=== PATIENT | female | born 1970 | race Caucasian/White ===

== ENCOUNTER 2025-03-05 17:18 | Emergency (ER) | payer OTHER, SELFPAY ==
--- NOTE | ~2025-03-05 | XR_ITS ---
EXAM: XR forearm RT 2V DATE: 03/05/2025 19:40 HISTORY: dog bite . COMPARISON: None available. FINDINGS: Normal mineralization. Slight cortical irregularity and possible linear lucency in the rad ial head. Right elbow joint effusion. No lytic or blastic lesion. Joint spaces and physes are maintai nilay. No erosion or periosteal change. Bandage material over the proximal forearm. Subcutaneous lucenc ies in the region of the bandage material. IMPRESSION: Possible radial head fracture with right elbow joint effusion. Recommend dedicated right elbow radiographs for further evaluation. Subcutaneous gas in the proximal forearm versus gas trapped within bandage material. Reviewed, dictated and finalized at location K. IMPRESSION: Possible radial head fracture with right elbow joint effusion. Mahin mmend dedicated right elbow radiographs for further evaluation. Subcutaneous ga s in the proximal forearm versus gas trapped within bandage material.
--- NOTE | ~2025-03-05 | XR_ITS ---
EXAM: XR elbow RT min 3V DATE: 03/05/2025 20:21 HISTORY: dog bite . COMPARISON: None available. FINDINGS: Normal mineralization. No fracture or dislocation. No lytic or blastic lesion. Joint space s are maintained. No erosion or periosteal change. Soft tissues within normal limits. Small right elb ow joint effusion. IMPRESSION: No acute osseous finding the right elbow. Small right elbow joint effusion. Reviewed, dictated and finalized at location K. IMPRESSION: No acute osseous finding the right elbow. Small right elbow joint e ffusion.
[2025-03-05 17:22] VITALS: BP 124/59; PULSE 89; RESP 16; TEMP 36.4; O2SAT 100
--- OUTSIDE RECORDS SUMMARY | 2025-03-05 18:44 | XMS_ITS | Clinical Summary ---
Author Organization [facility] Address [address] [place] [address] Care Team Providers Care Terrazzo Polisher Helper Name Role Phone Aries Landin DO Primary Care Provider [phone] Allergies No known active allergies Medications buPROPion HCL (WELLBUTRIN XL) 300 mg Extended Release 24 hour tabletIndications :Anxiety and depression TAKE ONE TABLET BY MOUTH ONCE DAILY IN THE MORNING (PLEASE MAKE AN APPOINTMENT) 90 Tablet 021 Active finasteride (PROSCAR) 5 mg tablet Take 5 mg by mouth daily. 023 Active traZODone (DESYREL) 100 mg tablet Take 100 mg by mouth daily after supper. 024 Active OLANZapine (ZyPREXA) 5 mg tablet Take 1 Tablet (5 mg) by mouth daily at bedtime. 30 Tablet 1 09/14/19 25 11:24 AM EXTERIOR DOOR INSTALLER 025 Active EnbreL SureClick 50 mg/mL (1 mL) Pen Injector Inject 4 mL by subcutaneous injection every 7 days. 025 Active levothyroxine 137 mcg tabletIndications :Acquired hypothyroidism Take 1 Tablet (137 mcg) by mouth daily in the morning. 100 Tablet 3 025 Active divalproex (DEPAKOTE) 250 mg Delayed Release tablet 025 Active sertraline (ZOLOFT) 100 mg tablet Active metFORMIN (GLUCOPHAGE XR) 500 mg Extended Release 24 hour tabletIndications :Type 2 diabetes mellitus without complication, without long-term current use of insulin (CMS/HCC) take 1 tablet by mouth twice daily with meals 200 Tablet 3 025 Active mirabegron (MYRBETRIQ) 25 mg Extended Release 24 hour tablet TAKE 1 TABLET DAILY 90 Tablet 025 Active progesterone micronized (PROMETRIUM) 100 mg Capsule Take 1 Capsule (100 mg) by mouth daily. 90 Capsule 025 Active Estradiol 0.5 mg/0.5 gram (0.1 %) Gel in Packet Apply 1 Package (0.5 mg) to skin as directed daily. 90 Packet 025 Active mirabegron (MYRBETRIQ) 25 mg Extended Release 24 hour tablet TAKE 1 TABLET DAILY 90 Tablet 025 2024 Discontinued progesterone micronized (PROMETRIUM) 100 mg Capsule TAKE 1 CAPSULE DAILY 90 Capsule 025 2024 Discontinued Estradiol 0.5 mg/0.5 gram (0.1 %) Gel in Packet APPLY 1 PACKET TO SKIN DIRECTED DAILY 90 Packet 025 2024 Discontinued(R eorder) Active Problems Patient Care Coordination No te Formatting of this note migh t be different from the original. 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 on humira. tolerated med and afforing relief. following Dr. Magi Main, arthitis customer service and sales consultant. Routine physical examination 01/11/2019 Bipolar affective disorder, currently depressed, moderate 01/11/2019 Current moderate episode of major depressive disorder without prior episode 02/06/2018 Other dietary vitamin B12 deficiency anemia 03/2018 Acquired hypothyroidism 02/05/2018 Onychomycosis 03/05/2017 Insomnia 05/10/2015 Former smoker 01/10/2015 Resolved Problems Problem Noted Date Diagnosed Date Resolved Date Chronic obstructive pulmonary disease 04/30/2022 11/11/2024 Type 2 diabetes mellitus with hyperglycemia 02/05/2018 04/30/2022 Encounters Date Type Department Care Team Description 02/22/2025 External Device Data [facility] ABSTRACTION Provider, Abstract 02/22/2025 External Device Data [facility] ABSTRACTION Provider, Abstract 02/16/2025 External Device Data [facility] ABSTRACTION Provider, Abstract 02/16/[address] [address] Magi Graham 02/15/2025 External Device Data [facility] ABSTRACTION Provider, Abstract 02/15/[address] [address] Galdino Connelly MD 02/10/[address] [address] Galdino Connelly MD 01/20/2025 External Device Data [facility] ABSTRACTION Provider, Abstract 01/20/2025 External Device Data [facility] ABSTRACTION Provider, Abstract 01/11/2025 External Device Data [facility] ABSTRACTION Provider, Abstract 12/07/2024 External Device Data [facility] ABSTRACTION Provider, Abstract 12/07/2024 External Device Data [facility] ABSTRACTION Provider, Abstract from Last 3 Months Immunizations Immunization Administration Dates Next Due (ADACEL/BOOSTRIX)(10 YR UP) TDAP VACCINE, 0.5ML, IM 02/26/2021 (PFIZER)(12 YR UP) COVID-19 VACCINE - EMERGENCY USE AUTHORIZATION, MRNA, [id number](PF) 30 MCG/0.3 ML IM SUSP 08/06/2021,12/14/2020,11/24/2020 (PNEUMOVAX 23)(50 YRS UP) PN EUMOCOCCAL POLYSACCHARIDE (PPV23) 0.5 ML, IM 05/12/2018 Adacel Vaccine > 7 Yo IM 02/26/2021 INFLUENZA VACCINE QUADRIVALE NT 6 MOS UP IM 05/12/2018 INFLUENZA VACCINE QUADRIVALE NT 6 MOS UP PF IM 05/21/2023,06/04/2021,07/13/2020,05/20 INFLUENZA VACCINE TRIVALENT SPLIT VIRUS, (6 MOS UP), 0.5ML (PF), IM 06/11/2024 Influenza Seasonal Unspecifi ed Formulation IM 05/21/2023,06/04/2021,07/13/2020,05/20 Influenza Vaccine Split 6-35 Mo IM 06/08/2011 Influenza Vaccine Tri Split 4+ Pf Im 08/03/2012, 06/08/2011 Family History Medical History Relation Name Comments Alcohol abuse Father Abdoulaye Hypertension Father Abdoulaye Hypertension Mother Benita Stroke Mother Benita Relation Name Status Comments Father Abdoulaye Mother Benita Social History Tobacco Use Types Packs/Day Years Used Date Smoking Tobacco: Former Cigarettes 0.5 20 0 05/14/1997 - 05/14/2017 Smokeless Tobacco: Never Tobacco Cessation:Counseling Given: No Alcohol Use Standard Drinks/Week Comments Yes 8 (1 standard drink = 0.6 oz pur e alcohol) Feeling Safe Answer Date Recorded Are you in a relationship wi th someone who hurts you emotionally and/or physically? No 09/10/2024 Food Insecurity Answer Date Recorded Patient needs follow up regardin 12/30/2024 Transportation Needs Answer Date Record ed Patient needs follow up regardin 12/30/2024 Utility Needs Answer Date Recorded Patient needs follow up regardin 12/30/2024 Comments No Sex and Gender Information Value Date Recorded Sex Assigned at Female 06/04/2024 9:42 AM CDT Legal Sex Female 3:55 AM EXTERIOR DOOR INSTALLER Gender Identity Female 06/04/2024 9:42 AM CDT Sexual Orientation Bisexual 06/04/2024 9: 42 AM CDT Last Filed Vital Signs Vital Sign Reading Time Taken Comments Blood Pressure 110/70 12/01/2024 3:52 PM CDT Pulse 69 11/11/2024 7:54 AM CDT Temperature 36.5 C (97.7 F) 11/11/2024 7:54 AM CDT Respiratory Rate 16 12/01/2024 3:52 PM CDT Oxygen Saturation 96% 11/11/2024 7:54 AM CDT Inhaled Oxygen Concentration - - Weight 77.1 kg (170 lb) 12/01/2024 3:52 PM CDT Height 154.9 cm (5' 1) 12/01/2024 3:52 PM CDT Body Mass Index 32.12 12/01/2024 3:52 PM CDT Plan of Treatment Upcoming Encounters Date Type Department Care Team (Late st Contact Info) Description 03/15/2025 4:10 PM CDT Office Visit [facility] - [address] [place] [address] [facility] [address] [place] [address] [place] [address] [facility] [address] [place] [address] 05/26/2025 8:00 AM CDT Office Visit [facility] [address] [place] [address] Aries Landin DO [address] [facility] [address] [place] [address] Health Maintenance Due Date Last Done Comments HEPATITIS B VACCINES (1 of 3 - 19+ 3-dose series) 12/29/1991 ZOSTER VACCINE (1 of 2) 12/29/1991 FIT-DNA Q 3 years 2017 FIT/FOBT Q 1 year 2017 Flex Sig/CT Colonography Q 5 years 2017 DIABETES ANNUAL RETINAL EXAM 05/17/2022 05/17/2021 DIABETES ANNUAL FOOT EXAM 04/30/20232021, 02/26/2021, 02/26/2021, Additional history exists COVID-19 Vaccine ( - 2023-2 5 season) 2024 08/06/2021, 12/14/2020, 11/24/2020 DIABETES MICROALBUMIN ANNUAL SCREEN 11/18/2024 11/19/2023, 11/26/2022, 02/26/2021, Additional history exists LDL CHOLESTEROL ANNUAL 11/18/2024 4, 11/26/2022, 05/21/2022, Additional history exists BREAST CANCER SCREENING 12/14/2024 12/15/19 24, 07/20/2022, 05/14/2021, Additional history exists DIABETES HBA1C Q 6 MONTHS 03/16/20252024, 11/11/2023, 11/26/2022, Additional history exists INFLUENZA VACCINE (#1) 2025 4, 05/21/2023, 05/21/2023, Additional history exists DIABETES: A1C (Auto Order) 09/16/202509/16, 11/11/2023, 11/26/2022, Additional history exists PAP SMEAR 03/01/2027 03/01/2024, 06/04/2021 CERVICAL CANCER SCREENING 03/01/2029 HPV/Cotest (21-29) 03/01/2029 03/01/2024, 06/04/2021 HPV/Cotest (30-65) 03/01/2029 03/01/2024, 06/04/2021 DTAP/TDAP/TD VACCINES (3 - T d or Tdap) 02/26/2031 02/26/2021, 02/26/2021 COLORECTAL SCREENING 03/18/2032 03/18/2022 Colorectal Cancer Screening 03/18/2032 Preventative Visit- Commercial Completed 0 11/11/2024, 11/11/2023, 11/07/2022, Additional history exists Medical Devices Implanted Type Area Reference Investigator Device Identifier Shelf Expiration Date Model / Serial / Lot Breast Implant Procedures Procedure Name Priority Date/Time Associated Diagnosis Comments POC HEMOGLOBIN A1C Routine 09/16/2024 3: 55 PM EXTERIOR DOOR INSTALLER Type 2 diabetes mellitus without complication, without long-term current use of insulin ([facility]) CERV/VAG CYTO AGE BASED SCREEN PAP Routine 03/01/2024 12:00 AM CDT Encounter for gynecological examination without abnormal finding MAMMO 3D FLOWER SCREEN IMPL BILAT W OR WO CAD Routine 12/15/2023 7:35 AM CDT Screening mammogram, encounter for MICROALBUMIN/CREATI NINE RATIO, RANDOM UR Routine 11/19/2023 11:16 AM CDT Routine general medical examination at a [facility] care facility Type 2 diabetes mellitus without complication, without long-term current use of insulin ([facility]) LIPID PANEL Routine 11/19/2023 11:14 AM CDT Routine general medical examination at a [facility] care facility Type 2 diabetes mellitus without complication, without long-term current use of insulin ([facility]) ENDOSCOPY, COLON, SCREENING Routine 03/18/2022 HM DIABETES EYE EXAM Routine 05/17/2021 from Last 3 Months or Most Recently Relevant to Health Maintenance Results * POC HEMOGLOBIN A1C (09/16/2024 3:55 PM EXTERIOR DOOR INSTALLER) HGB A1C POC 5.7 4.0 - 6.0 % [facility] KIT LOT NUMBER POC 135,074 [facility] KIT EXP DATE POC 09-01-26 [facility] Blood, capillary 09/16/2024 3:55 PM EXTERIOR DOOR INSTALLER us Vita Leon NP POINT OF CARE TESTING Final Resu lt [facility] CLIA# [id number] [address] [place] [address] * (ABNORMAL) CERV/VAG CYTO AGE BASED SCREEN PAP (03/01/2024 12:00 AM CDT) COMMENT (PAP): [facility] [place] Comment: This order for age-based cervical cancer and STI screening follows ACOG guidelines(PB 168, 140, UUJ238). See individual assays for performing site location. CLINICAL INFORMATION [facility] [place] Comment:None given LAST MENSTRUAL PERIOD [facility] [place] Comment:[id number] PREV PAP: [facility] [place] Comment:[id number] NIL NEG HPV PREV BX: [facility] [place] Comment:NONE GIVEN SOURCE [facility] [place] Comment:Endocervix ADEQUACY: [facility] [place] Comment: Satisfactory for evaluation. Endocervical/transformation zone component present. GENERAL CATEGORIZATION: (A) [facility] [place] Comment:Cytology Results: Ep ithelial Cell Abnormality PAP INTERP (A) [facility] [place] Comment: Atypical Squamous Cells of Undetermined Significance (ASC-US) COMMENT (PAP TEST) [facility] [place] Comment: This Pap test has been evaluated with computer assisted technology. Suggest clinical correlation and follow-up as clinically appropriate HUMIDIFIER ATTENDANT: Lisbeth rehman [facility] Comment: ROSALINA MCFARLAND(ASCP) CT Screening location: [facility] [place] [address] PATHOLOGIST [facility] Comment: Brent Torrez M.D., Board Certified in Anatomic Pathology and Cytopathology. (electronic signature) EXPLANATORY NOTE [facility] Comment: EXPLANATORY NOTE: The Pap is a screening test for cervical cancer. It is not a diagnostic test and is subject to false negative and false positive results. It is most reliable when a satisfactory sample, regularly obtained, is submitted with relevant clinical findings and history, and when the Pap result is evaluated along with historic and current clinical information. HPV E6/E7 Not Detected Not Detected [email or web address] Comment: Methodology: Aircraft Engineer-Mediated Amplification This assay detects E6/E7 viral messenger RNA (mRNA) from 14 high-risk HPV types (16,18,31,33,35,39,45,51,52,56,58,59,66,68). Cervical sources are required for HPV testing. If a vaginal source from a patient who has had a total hysterectomy with removal of cervix was submitted, please contact the testing laboratory for alternative testing options. For additional information, please refer to http://education.[employer]/faq/HCI079x7 (This link if provided for information/ educational purposes only.) Test Performed at: [facility] [address] [place] [address] Nate BRIGHT Genital SWAB OF ENDOCERVIX / Unknown 03/01/2024 03/01/2024 1:42 PM CDT us Galdino Connelly MD PATHOLOGY/CYTOLOGY ORDERABLES Fi nal Result [facility] [phone] [facility] [address] [place] [address] * MAMMO 3D FLOWER SCREEN IMPL BILAT W OR WO CAD (12/15/2023 7:35 AM CDT) Anatomical Region Laterality Modality Breast Bilateral Mammography 12/15/2023 7:35 AM CDT Impressions 12/15/2023 10:07 AM CDT IMPRESSION: No mammographic evidence of malignancy. RECOMMENDATIONS: Routine screening mammogram in one year. DICTATION LOCATION: [facility] Narrative 12/15/2023 10:07 AM CDT MAMMO 3D FLOWER SCREEN IMPL BILAT W OR WO CAD DATE: 12/15/2023 7:35 AM HISTORY: Routine screening. TECHNIQUE: Full field digital craniocaudal and mediolateral oblique projections of both breasts were obtained. Computer aided diagnosis was performed. COMPARISON: 2018 BREAST COMPOSITION: The breasts are heterogeneously dense, which may obscure small masses. FINDINGS: No suspicious mass, suspicious microcalcifications, or architectural distortion in either breast is identified. Since the prior study, there has been no significant interval change. Bilateral subpectoral implants are unchanged. The computer aided diagnosis detects no significant abnormality. OVERALL FINAL ASSESSMENT: BI-RADS CATEGORY 1 : Negative Procedure Note Robbie Bolton MD - 12/15/2023 MAMMO 3D FLOWER SCREEN IMPL BILAT W OR WO CAD DATE: 12/15/2023 7:35 AM HISTORY: Routine screening. TECHNIQUE: Full field digital craniocaudal and mediolateral oblique projections of both breasts were obtained. Computer aided diagnosis was performed. COMPARISON: 2018 BREAST COMPOSITION: The breasts are heterogeneously dense, which may obscure small masses. FINDINGS: No suspicious mass, suspicious microcalcifications, or architectural distortion in either breast is identified. Since the prior study, there has been no significant interval change. Bilateral subpectoral implants are unchanged. The computer aided diagnosis detects no significant abnormality. OVERALL FINAL ASSESSMENT: BI-RADS CATEGORY 1 : Negative IMPRESSION: No mammographic evidence of malignancy. RECOMMENDATIONS: Routine screening mammogram in one year. DICTATION LOCATION: [facility] Aries Landin DO MAMMO ORDERABLES Final Result * MICROALBUMIN/CREATININE RATIO, RANDOM UR (11/19/2023 11:16 AM CDT) ABSTRACTED MICROALBUMIN,URI NE [facility] ABSTRACTED CREATININE, URINE 156.1 [facility] ABSTRACTED MICROALBUMIN/CRE ATININE RATIO, URINE <2 [facility] Urine URINE SPECIMEN OBTAINED BY CLEAN CATCH PROCEDURE / Unknown 11/19/2023 11:16 AM CDT Aries Landin DO URINE ORDERABLES Final Result Performing Organization Address [facility] Co de Phone Number [facility] [phone] * LIPID PANEL (11/19/2023 11:14 AM CDT) ABSTRACTED CHOLESTEROL 138 [facility] ABSTRACTED TRIGLYCERIDE 52 [facility] ABSTRACTED HDL 71 [facility] ABSTRACTED LDL CALCULATED 55 [facility] Blood 11/19/2023 11:1 4 AM CDT Aries Landin DO CHEMISTRY ORDERABLES Final Res ult Performing Organization Address [facility] Co de Phone Number [facility] [phone] * ENDOSCOPY, COLON, SCREENING (03/18/2022) Paul Phipps MD GI PROCEDURE ORDERABLES Fin al Result * HM DIABETES EYE EXAM (05/17/2021) Ángel Banuelos OD HEALTH MAINTENANCE Edited Result - Final Performing Organization Address City/[facility]/ZIP Co de Phone Number [facility] CLIA# [id number] [address] [place] [phone] from Last 3 Months or Most Recently Relevant to Health Maintenance Insurance [employer] [address] [place] [address] [employer] OPEN ACCESS HMO [address] [place] [address] RX [employer] RX Member Subscriber Plan / Payer (Ef fective 2024-Present) Name:Jazlyn Hyde Relation to Subscriber:Self Name:Jazlyn Hyde Subscriber ID:Not on file Payer ID:Not on file Type:RX Commercial Address: [address] [place] [employer] Advance Directives For more information, please contact: [phone] * Full Code (Latest Code Status on File) Date Activated Date Inactivated Comments 09/11/2024 4:00 PM 09/14/2024 2:23 PM Care Teams Terrazzo Polisher Helper Relationship Specialty Start Date End Date Aries Landin DO [address] [facility] [address] [place] [address] PCP - General Family Practice 10/29/21
--- OUTSIDE RECORDS SUMMARY | 2025-03-05 18:44 | XMS_ITS | Patient Health Record ---
Author Organization [address] Address [address] [place], [place] [id number] Care Team Providers Care Corporate Director Name Role Phone Vida Wu Unavailable [phone] Allergies No Known Allergies Reason For Referral No Information Medications Medication SIG (Take, Route, Frequency, Duration) Notes Start Date End Date Status Divalproex Sodium 250 MG 1 tablet Orally Twice a day Active Enbrel SureClick 50 MG/ML Inject 1 pen ( 50mg) Subcutaneous once a week for 84 days Active Mirabegron ER 25 MG 1 tablet Orally Once a day Active Turmeric Active Curcumin 95 500 MG as directed Orally Active Cholecalciferol 25 MCG (1000 UT) 1 capsule Orally Once a day Active buPROPion HCl ER (XL) 300 MG 1 tablet in the morning Orally Once a day Active Cyanocobalamin 2500 MCG as directed Sublingual Active Magnesium 100 MG 2 tablets with meals Orally Twice a day Active Biotin 10 MG 1 tablet Orally Once a day Active metFORMIN HCl 500 MG 1 tablet with a ray l Orally Once a day Active Humira (2 Pen) 40 MG/0.4ML 0.4 mL Subcutaneous Not-Taking Levothyroxine Sodium 137 MCG 1 tablet in the morning on an empty stomach Orally Once a day Active Calcium Citrate + D 315-5 MG-MCG 1 tablet with a meal Orally Once a day Active Vyvanse 10 MG 1 capsule in the morning Orally Once a day Active traZODone HCl 100 MG 1 tablet at bedtime Orally Once a day Active Finasteride 5 MG 1 tablet Orally Once a day Active Sertraline HCl 50 MG 1 tablet Orally Onc e a day Active Progesterone Micronized Active Estradiol 0.5 MG/0.5GM 1 packet to skin Transdermal Once a day Active Social History Tobacco Use: Social History Observation Description Date Details (start date - stop date) Former Smoker NA - NA Sex Assigned At : Social History Observation Description Sex Assigned At Female Tobacco Control (Standard) Question Answer Notes Tobacco use: Former smoker Problems Problem Type SNOMED Code ICD Code Onset Dates Problem Status W/U Status Risk Notes Problem Rheumatoid arthritis (40516754) Rheumatoid arthritis, involving unspecified site, unspecified whether rheumatoid factor present (M06.9) Active confirmed Problem Disorder of lumbar disc (167074068) Lumbar disc disease (M51.9) Active confirmed Problem DM - Diabetes mellitus (04940279) DM (diabetes mellitus) (E11.9) Active confirmed Problem Chronic fatigue syndrome (00891815) Chronic fatigue syndrome (R53.82) Active confirmed Problem RA (rheumatoid arthritis) (M06.9) Active confirmed Problem Hypothyroidism (E03.9) Active confirmed Problem Congenital hip dysplasia (67753134) Hip dysplasia (Q65.89) Active confirmed Vital Signs Height-cm 154.94 cm 02/09/2025 Weight-kg 75.3 kg 02/09/2025 Height 61 in 02/09/2025 Weight 166 lbs 02/09/2025 BMI 31.36 kg/m2 02/09/2025 Encounters Encounter Location Date Provider Diagnosis [address] [place], [place] [id number] 02/09/2025 Vida Juliannaurvoa Rheumatoid arthritis, involving unspecified site, unspecified whether rheumatoid factor present M06.9 ; Other prison (current) drug therapy Z79.899 and Routine health maintenance Z00.00 Assessments Encounter Date Diagnosis (ICD Code) Assessment Notes Treatment Notes Treatment Clinical Notes Section Notes 02/09/2025 Rheumatoid arthritis, involving unspecified site, unspecified whether rheumatoid factor present (ICD-10 - M06.9) Ms. Hyde is a 54 year-old female with rheumatoid arthritis, currently managed by [facility]. At this time, patient will continue Enbrel. Patient will be monitored rodent exterminator for symptom control and side effects. SCREENING: (11/08/2024) CDAI: 0 (DATE) RAPID3 BASELINE CDAI:10 LABS: QuantiFERON-TB Gold (02/17/2024): Negative Hepatitis B Surface Antigen (12/27/2022): NR Rheumatoid arthritis is chronic in nature with periods of remission and flares. Flares can be triggered by stress, infections, certain medications, and alcohol. Enbrel risks include myelosuppression, immunosuppression autoimmune hepatitis, demyelinating disease, lymphoma, and serious infections. Instructed to call the office with any concerns or infections. 02/09/2025 Other prison (current) drug therapy (ICD-10 - Z79.899) When on high-risk medications, patient must be vigilant about any new symptoms and understand the risks and side effects of their treatment. Biologic/small molecule medications can have significant side effects that may require blood test monitoring on a regular basis. Patient to contact providers for fever, chills, night sweats, malaise, abdominal pain, weakness, fatigue, headaches, infections, difficulty breathing or persistent cough, new skin lesions, or other unusual symptoms. 02/09/2025 Routine health maintenance (ICD-10 - Z00.00) https://www.cdc.gov/v accines/schedules/kaelyn nloads/adult/adult-co mbined-schedule.pdf Plan Of Treatment No Information Medical (General) History Medical History History ICD Code Hip bursitis M70.70 Lumbar disc disease M51.9 Hip dysplasia Q65.89 Hypothyroidism E03.9 DM (diabetes mellitus) E11.9 Chronic fatigue syndrome R53.82 Fatigue R53.83 RA (rheumatoid arthritis) M06.9
--- OUTSIDE RECORDS SUMMARY | 2025-03-05 18:44 | XMS_ITS | Continuity of Care Document ---
Author Organization [facility] Address [address] [place] [address] Phone Care Team Providers Care Photo Lab Specialist Name Role Phone Magi Hernandez MD Unavailable Unavailable Procedures Procedure Date CULTURE, PRESUMPTIVE, PATHOGENIC ORGANIS MS, SCREENING ONLY; CULTURE, CHLAMYDIA, ANY SOURCE 12 PERIODIC COMPREHENSIVE PREVENTIVE MED RE E/M; ESTABLISHED PATIENT; 18-39 OFFICE/OUTPATIENT VISIT, EST OFFICE/OUTPATIENT VISIT, EST Injection, medroxyprogesterone acetate ( Depo-Provera), 150 mg INFLUENZA VACCINE, NO PRESERVATIVE, AGE 3YRS+ OFFICE/OUTPATIENT VISIT, EST ENDOMETRIAL BX +-ENDOCRV BX W/O DILAT SP X OFFICE/OUTPATIENT VISIT, EST Injection, medroxyprogesterone acetate ( Depo-Provera), 150 mg COLLECTION OF VENOUS BLOOD BY VENIPUNCTU RE CULTURE, PRESUMPTIVE, PATHOGENIC ORGANIS MS, SCREENING ONLY; CULTURE, CHLAMYDIA, ANY SOURCE 11 CYTP C/V AUTO THIN LYR PREPJ SCR SYS PHY S 1ST COMPRE PREV MED E/M NEW PT 1839 Mar Advance Directives Directive Yes / No Effective Date File Name No Information Encounters Encounter Description Practice Location Reason(s) For Visit Diagnoses Date Provider Providers Copied on [facility] [address], [place], [place], [address] , [place] tel:[phone] Jg On Lemp No Information 4 David Sow. [address], [place], [place], [address], [place]. [phone] PERIODIC COMPREHENSIVE PREVENTIVE MED REE/M; ESTABLISHED PATIENT; 18-39 [facility], [address], [place], [place], [address] , [place] tel: [phone] Carlosia On Lemp annual (chief complaint) Routine gynecological examinationScr eening examination for venereal diseaseSurveil kierra of other contraceptive methodNeed for prophylactic vaccination and inoculation, influenzaFemal e orgasmic disorder 2 Tepe Magi. [address], [place], [place], [address], [place]. [phone] OFFICE/OUTPATI ENT VISIT, EST [facility], [address], [place], [place], [address] , [place] tel: [phone] Jg [facility] depo (chief complaint) Premature menopausePerso nal history of tobacco use 2 Tepe Magi. [address], [place], [place], [address], [place]. [phone] OFFICE/OUTPATI ENT VISIT, EST [facility], [address], [place], [place], [address] , [place] tel: [phone] Jg On [facility]p depo (chief complaint) Premenopausal menorrhagiaNee d for prophylactic vaccination and inoculation, influenza 1 No Information OFFICE/OUTPATI ENT VISIT, EST [facility], [address], [place], [place], [address] , [place] tel: [phone] [facility] On [facility] insomnia (chief complaint) Unspecified nonpsychotic mental disorder 1 Aundrea Hobson. [address], [place], [place], [address], [place]. tel:[phone] OFFICE/OUTPATI ENT VISIT, EST [facility], [address], [place], [place], [address] , [place] tel: [phone] [facility] endometrial biopsy (chief complaint) Irregular menstrual cycleOther disorders of menstruation and other abnormal bleeding from female genital tractScreening for malignant neoplasms of the cervix 1 Tephermilo Sow. [address], [place], [place], [address], [place]. tel:[phone] 1ST COMPRE PREV MED E/M NEW PT 18-39 [facility], [address], [place], [place], [address] , [place] tel: [phone] Jg On [facility] annual (chief complaint)ab normal menses (chief complaint) Routine gynecological examinationSur veillance of other contraceptive methodScreenin g examination for venereal diseaseMetrorr hagiaObesity, unspecified 1 David Sow. [address], [place], [place], [address], [place]. tel:[phone] Family History Family Member Type Diagnosis Age At Onset Problem (finding) No family history of Ov xavier cancer Problem (finding) No family history of Hy pertension Problem (finding) No family history of Di abetes mellitus Problem (finding) No family history of Ca ncer, colon Problem (finding) No family history of Ca ncer, breast Immunizations Vaccine Date Status Comments flu (split) preservative kishore e, 3 yrs or older administered Source: New Immuniza tion Record Flu administered Source: New Imm unization Record flu (split) preservative kishore e, 3 yrs or older administered Source: New Immuniza tion Record Payers Payer name Insurance type Covered republican ID Authoriza tion(s) [facility] [id number] Social History Type Description Quantity Date Captured Comments Sex Female Smoking Status No Information Chief Complaint And Reason For Visit No Information Reason For Referral Reason For Referral No Information Plan Of Treatment Date Type Action Status Goal Tobacco cessation counseling completed Referral Referred To: [address], [address] Ordered: Referral: [facility]. Radiology. ordered Referral Referred To: Mo Brand MS [address] [place], [address] Ordered: Referral: Mo Brand MS RD. Nutrition. Appointment date/timeframe: 03/29/2011 ordered Future Order: Lab Order HCG, QL, URINE (396), Appointment on: , Sent on: Sent History Of Present Illness Encounter Date Complaint History Of Prese nt Illness No Information Functional Status Date Functional Assessmen t No Information Instructions Date Instruction Additional Infor mation No Information Assessments Type Assessment Date No Information Patient Care Teams Name Effective Dates (start - stop) Status Members No Information
--- OUTSIDE RECORDS SUMMARY | 2025-03-05 18:44 | XMS_ITS | Encounter Summary ---
Author Organization [facility] Address [address] [place] [address] Care Team Providers Care Drill Sharpener Operator Name Role Phone Aries Landin DO Primary Care Provider [phone] Encounter Details Date Type Department Care Team (Latest Contact Info) Description 02/15/2003 Outpatient Historical [facility] Mo Teran MD [address] [facility] [address] [place] [address] DEVIATED NASAL SEPTUM (Primary Dx) Social History Tobacco Use Types Packs/Day Years Used Date Smoking Tobacco: Never Assessed Comments Unknown Sex and Gender Information Value Date Recorded Sex Assigned at Female 06/04/2024 9:42 AM CDT 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 Gender Identity Female 06/04/2024 9:42 AM CDT Sexual Orientation Bisexual 06/04/2024 9: 42 AM CDT documented as of this encounter Plan of Treatment Upcoming Encounters Date Type Department Care Team (Late st Contact Info) Description 03/15/2025 4:10 PM CDT Office Visit [facility] - [address] [place] [address] [address] [place] [address] [place] [address] [facility] [address] [place] [address] 05/26/2025 8:00 AM CDT Office Visit [facility] [address] [place] [address] Aries Landin DO [address] [address] documented as of this encounter Visit Diagnoses Diagnosis Deviated nasal septum- Primary documented in this encounter Additional Health Concerns Infection Onset Date Last Indicated Resolved Time R/O COVID-19 04/21/2020 04/21/2020 04/23/2020 4:30 AM CDT COVID-19 04/21/2020 04/21/2020 05/21/2020 1:16 AM CDT documented as of this encounter Care Teams Drill Sharpener Operator Relationship Specialty Start Date End Date Aries Landin DO [facility] [address] PCP - General Family Practice 10/29/21 documented as of this encounter
--- OUTSIDE RECORDS SUMMARY | 2025-03-05 18:44 | XMS_ITS ---
Author Organization [address] [place], [place] [address] Care Team Providers Care Vehicle Body Builder Name Role Phone Vida Wu Unavailable [phone] Allergies No Known Allergies Medications Medication SIG (Take, Route, Frequency, Duration) Notes Start Date End Date Status traZODone HCl 100 MG 1 tablet at bedtime Orally Once a day Active Finasteride 5 MG 1 tablet Orally Once a day Active Sertraline HCl 50 MG 1 tablet Orally Onc e a day Active Progesterone Micronized Active Estradiol 0.5 MG/0.5GM 1 packet to skin Transdermal Once a day Active Turmeric Active buPROPion HCl ER (XL) 300 MG 1 tablet in the morning Orally Once a day Active Magnesium 100 MG 2 tablets with meals Orally Twice a day Active metFORMIN HCl 500 MG 1 tablet with a ray l Orally Once a day Active Levothyroxine Sodium 137 MCG 1 tablet in the morning on an empty stomach Orally Once a day Active Curcumin 95 500 MG as directed Orally Active Vyvanse 10 MG 1 capsule in the morning Orally Once a day Active Divalproex Sodium 250 MG 1 tablet Orally Twice a day Active Enbrel SureClick 50 MG/ML Inject 1 pen ( 50mg) Subcutaneous once a week for 84 days Active Mirabegron ER 25 MG 1 tablet Orally Once a day Active Cholecalciferol 25 MCG (1000 UT) 1 capsule Orally Once a day Active Cyanocobalamin 2500 MCG as directed Sublingual Active Biotin 10 MG 1 tablet Orally Once a day Active Humira (2 Pen) 40 MG/0.4ML 0.4 mL Subcutaneous Not-Taking Calcium Citrate + D 315-5 MG-MCG 1 tablet with a meal Orally Once a day Active Social History Tobacco [...] W/U Status Risk Notes Problem Rheumatoid arthritis (81645196) Rheumatoid arthritis, involving unspecified site, unspecified whether rheumatoid factor present (M06.9) Active confirmed Problem Disorder of lumbar disc (072672200) Lumbar disc disease (M51.9) Active confirmed Problem Congenital hip dysplasia (23485892) Hip dysplasia (Q65.89) Active confirmed Problem Hypothyroidism (74580022) Hypothyroidism (E03.9) Active confirmed Problem DM - Diabetes mellitus (60230708) DM (diabetes mellitus) (E11.9) Active confirmed Problem Chronic fatigue syndrome (64961025) Chronic fatigue syndrome (R53.82) Active confirmed Problem Rheumatoid arthritis (91475035) RA (rheumatoid arthritis) (M06.9) Active confirmed Vital Signs Height 61 in 02/09/2025 Weight 166 lbs 02/09/2025 BMI 31.36 kg/m2 02/09/2025 Height-cm 154.94 cm 02/09/2025 Weight-kg 75.3 kg 02/09/2025 Encounters Encounter Location Date Provider Diagnosis [address] [place], [place] [id number] 02/09/2025 Vida Wu Rheumatoid arthritis, involving unspecified site, unspecified whether rheumatoid factor present M06.9 ; Other retirement (current) drug therapy Z79.899 and Routine health [...] will continue Enbrel. Patient will be monitored supervisor long goods for symptom control and side effects. SCREENING: [...] with any concerns or infections. 02/09/2025 Other retirement (current) drug therapy (ICD-10 - Z79.899) When [...] https://www.cdc.gov/v accines/schedules/kaelyn nloads/adult/adult-co mbined-schedule.pdf Plan Of Treatment Medication Medication Name Sig Start Date Stop Date Notes Enbrel SureClick 50 MG/ML Inject 1 pen ( 50mg) Subcutaneous once a week for 84 days Treatment Notes Assessment Notes Rheumatoid arthritis, involv ing unspecified site, unspecified whether rheumatoid factor present Ms. Hyde is a 54 year-old female with rheumatoid arthritis, currently managed by [facility] Jillian Rodriguez. At this time, patient will continue Enbrel. Patient will be monitored supervisor long goods for symptom control and side effects. SCREENING: [...] the office with any concerns or infections. Other supervisor long goods (current) drug therapy W hen on high-risk medications, patient must be vigilant [...] new skin lesions, or other unusual symptoms. Routine health maintenance https://www.c dc.gov/vaccines/schedules/downlo ads/adult/outmn-aewmzzgx-oybvbade.pdf Progress Notes * Lenin HYDEaDOB:1970 (54 yo F)Acc No.[id number]:02/09/2025 Patient: Jazlyn GARY Provider: Tyrone Wu :1970 A ge:54 Y S ex:Female Date:02/09/2025 Address:[address] [place] [address] [address] [place] [address] Subjective: * Chief Complaints: * * HPI: T elemedicine: Ms. Dixie walker i s a 54 year-old female with rheumatoid arthritis, currently managed by [facility] Jillian Rodriguez. Patient's past medical history is notable for hip bursitis, lumbar disc disease, hip dysplasia, hypothyroidism, DM, chronic fatigue syndrome and fatigue. The patient reports joint pain, swelling, and stiffness specifically in her fingers, hands, hips, knees and toes. The patient has been managing her symptoms with E nbrel since September of 2024 and reports with improvement, c naylatly reporting pain scale as 0/10. Patient is a ble to complete ADLs as desired. Previously, the patient has tried and failed ibuprofen, voltaren gel, prednisone, MTX, SSZ and Humira. The patient denies occasionally taking OTC meds. Patient denies any reports of recent hospitalizations, ER, or Urgent Care visits within the last six months. Patient was called to verify their medical status and their prescription status. At this time, there are no changes to our prescription plans. [facility] is assisting as a specialty team in monitoring their health in consult with the patient's manager water wastewater. Biologic/small molecule agents affect human immunology can put patients at risk for various infections and malignancies. Proper monitoring with lab tests and an updated vaccination profile can minimize these risks. A HOC steam gigger will be available to the patient for medication management. * Medical History: * Surgical History: * Hospitalization/Major Diagno stic Procedure: D enies Past Hospitalization * Family History: N on-Contributory. * Social History: T obacco Use: T obacco Control (Standard) T obacco use: F ormer smoker * Medications: T akingCurcumin 95 500 MG Capsule as directed Orally Turmeric Magnesium 100 MG Tablet 2 tablets with meals Orally Twice a day buPROPion HCl ER (XL) 300 MG Tablet Extended Release 24 Hour 1 tablet in the morning Orally Once a day Levothyroxine Sodium 137 MCG Tablet 1 tablet in the morning on an empty stomach Orally Once a day metFORMIN HCl 500 MG Tablet 1 tablet with a meal Orally Once a day traZODone HCl 100 MG Tablet 1 tablet at bedtime Orally Once a day Sertraline HCl 50 MG Tablet 1 tablet Orally Once a day Finasteride 5 MG Tablet 1 tablet Orally Once a day Estradiol 0.5 MG/0.5GM Gel 1 packet to skin Transdermal Once a day Progesterone Micronized Cholecalciferol 25 MCG (1000 UT) Capsule 1 capsule Orally Once a day Biotin 10 MG Tablet 1 tablet Orally Once a day Cyanocobalamin 2500 MCG Tablet Sublingual as directed Sublingual Calcium Citrate + D 315-5 MG-MCG Tablet 1 tablet with a meal Orally Once a day Enbrel SureClick 50 MG/ML Solution Auto-injector Inject 1 pen (50mg) Subcutaneous once a week Vyvanse 10 MG Capsule 1 capsule in the morning Orally Once a day Mirabegron ER 25 MG Tablet Extended Release 24 Hour 1 tablet Orally Once a day Divalproex Sodium 250 MG Tablet Delayed Release 1 tablet Orally Twice a day Taking Curcumin 95 500 MG Capsule as directed Orally Taking Turmeric Taking Magnesium 100 MG Tablet 2 tablets with meals Orally Twice a day Taking buPROPion HCl ER (XL) 300 MG Tablet Extended Release 24 Hour 1 tablet in the morning Orally Once a day Taking Levothyroxine Sodium 137 MCG Tablet 1 tablet in the morning on an empty stomach Orally Once a day Taking metFORMIN HCl 500 MG Tablet 1 tablet with a meal Orally Once a day Taking traZODone HCl 100 MG Tablet 1 tablet at bedtime Orally Once a day Taking Sertraline HCl 50 MG Tablet 1 tablet Orally Once a day Taking Finasteride 5 MG Tablet 1 tablet Orally Once a day Taking Estradiol 0.5 MG/0.5GM Gel 1 packet to skin Transdermal Once a day Taking Progesterone Micronized Taking Cholecalciferol 25 MCG (1000 UT) Capsule 1 capsule Orally Once a day Taking Biotin 10 MG Tablet 1 tablet Orally Once a day Taking Cyanocobalamin 2500 MCG Tablet Sublingual as directed Sublingual Taking Calcium Citrate + D 315-5 MG-MCG Tablet 1 tablet with a meal Orally Once a day Taking Enbrel SureClick 50 MG/ML Solution Auto-injector Inject 1 pen (50mg) Subcutaneous once a week Taking Vyvanse 10 MG Capsule 1 capsule in the morning Orally Once a day Taking Mirabegron ER 25 MG Tablet Extended Release 24 Hour 1 tablet Orally Once a day Taking Divalproex Sodium 250 MG Tablet Delayed Release 1 tablet Orally Twice a day Not-TakingHumira (2 Pen) 40 MG/0.4ML Auto-injector Kit 0.4 mL Subcutaneous Medication List reviewed and reconciled with the patientNot-Taking Humira (2 Pen) 40 MG/0.4ML Auto-injector Kit 0.4 mL Subcutaneous Medication List reviewed and reconciled with the patient * Allergies: N .K.D.A.no[Allergies Verified] Objective: * Vitals: W t:166lbs, Wt-k.3 kg, Ht: 61 in, Ht-cm: 154.94 cm, BMI:31.36Index, Body Surface Area: 1.8. Assessment: * Assessment: 1. R heumatoid arthritis, involving unspecified site, unspecified whether rheumatoid factor present - M06.9 2 . O ther retirement (current) drug therapy - Z79.899 ?3. R [facility] health maintenance - Z00.00 Plan: * Treatment: 2. O ther supervisor long goods (current) drug therapy Notes:When on high-risk medications, patient must be vigilant [...] new skin lesions, or other unusual symptoms. 3. R [facility] health maintenance Notes:https://www.cdc.gov/vaccines/sche dules/downloads/adult/hwobv-fcydijyn-muy edule.pdf * Procedure Codes: * Billing Information: * Visit Code: * Procedure Codes: Care Plan Details* * Sign off status: Completed true * Provider: Tyrone Wu Date: 0 02/09/2025 Generated for Dev gruber/Monica/Farhana on: 0 03/05/2025 06:43 PM CDT History and Physical Notes * HPI (History of Present Illness) Category Sub-Category Detail Notes Category Not es Telemedicine Ms. Hyde is a 54 year-old female with rheumatoid arthritis, currently managed by [facility] Jillian Rodriguez. Patient's past medical history is notable for hip bursitis, lumbar disc disease, hip dysplasia, hypothyroidism, DM, chronic fatigue syndrome and fatigue. The patient reports joint pain, swelling, and stiffness specifically in her fingers, hands, hips, knees and toes. The patient has been managing her symptoms with Enbrel since September of 2024 and reports with improvement, currently reporting pain scale as 0/10. Patient is able to complete ADLs as desired. Previously, the patient has tried and failed ibuprofen, voltaren gel, prednisone, MTX, SSZ and Humira. The patient denies occasionally taking OTC meds. Patient denies any reports of recent hospitalizations, ER, or Urgent Care visits within the last six months. Patient was called to verify their medical status and their prescription status. At this time, there are no changes to our prescription plans. [facility] is assisting as a specialty team in monitoring their health in consult with the patient's manager water wastewater. Biologic/small molecule agents affect human immunology can put patients at risk for various infections and malignancies. Proper monitoring with lab tests and an updated vaccination profile can minimize these risks. A HOC steam gigger will be available to the patient for medication management.
--- NOTE | 2025-03-05 19:26 | ED_ITS ---
HPI - Animal Bite General Chief Complaint: Animal Bite Stated Complaint: dog bite Time Seen by Provider: 03/05/25 18:24 History of Present Illness HPI narrative: 54-year-old female presents emergency department for dog bite to volar aspect of her right forearm that occurred at 5:00 p.m.. Patient states her son got a new dog this past week. She went to approach the dog, the dog was barking, she extended out her arm to pet the dog and it bit her right arm. The dog is reportedly up-to-date on vaccines in the patient states she is up-to-date on her tetanus. She is presenting with small lacerations to the volar aspect of the proximal right forearm. Bleeding is controlled. She is not anticoagulated. She denies other injuries. Related Data Allergies Allergy/AdvReac Type Severity Reaction Status Date / Time No Known Allergies Allergy Verified 03/05/25 17:19 Review of Systems Review of Systems: All systems reviewed & are unremarkable except as noted in HPI and below Exam Narrative: GENERAL: Well-appearing, well-nourished, and in no acute distress. HEAD: Normocephalic, atraumatic. EYES: EOMI. ENT: Nares clear, no rhinorrhea or epistaxis. Mucous membranes moist. NECK: Supple. CHEST: Clear to auscultation. No respiratory distress. HEART: Regular rate and rhythm. No murmur heard. Normal peripheral pulses. EXTREMITIES: Normal range of motion. No edema. SKIN: Multiple lacerations/puncture wounds to the volar aspect of the proximal right forearm. The largest laceration measures approximately 1 cm with exposed subcutaneous tissue but no deep structures or foreign bodies visualized. There is a 0.5 cm laceration with exposed subcutaneous tissue, no deep structures or foreign bodies visualized. There are 3 very superficial lacerations/small puncture wounds with no deep structures or foreign bodies visualized. Patient has full active and passive range of motion of elbow, wrist and all digits. There is tenderness to the proximal forearm. Radial, median and ulnar nerves are intact. Radial pulses 2+. Sensation is intact throughout. NEURO: No focal deficits. Alert and oriented x3 Course Vital Signs Vital signs: Vital Signs Temperature 97.6 F 03/05/25 17:22 Pulse Rate 89 03/05/25 17:22 Respiratory Rate 16 03/05/25 17:22 Blood Pressure 124/59 L 03/05/25 17:22 Pulse Oximetry 100 03/05/25 17:22 Temperature 97.6 F 03/05/25 17:22 Pulse Rate 89 03/05/25 17:22 Respiratory Rate 16 03/05/25 17:22 Blood Pressure 124/59 L 03/05/25 17:22 Pulse Oximetry 100 03/05/25 17:22 Procedures Laceration Laceration 1: Date: 03/05/25 Time: 21:59 Site: upper extremity Side (If applicable): right Size (cm): 1 Description: linear Depth: simple, single layer Local Anesthetic: lidocaine 1% and with epi Amount of anesthesia used (mL): 2 Pre-repair: wound explored, irrigated and irrigated extensively ====== Skin Level ====== Skin layer closed with: nylon Size (cm): 4-0 Number of sutures: 3 Technique: simple, interrupted ====== Subcutaneous Layer ====== ====== Muscle Layer ====== ====== Tendon Layer ====== Laceration 2: Date: 03/05/25 Time: 22:01 Site: upper extremity Side (If applicable): right Size (cm): 0.5 Description: linear Depth: simple, single layer Local Anesthetic: lidocaine 1% and with epi Amount of anesthesia used (mL): 1 Pre-repair: wound explored, irrigated and irrigated extensively ====== Skin Level ====== Skin layer closed with: nylon Size (cm): 4-0 Number of sutures: 1 Technique: simple, interrupted ====== Subcutaneous Layer ====== ====== Muscle Layer ====== ====== Tendon Layer ====== Laceration 3: Date: 03/05/25 Time: 22:02 Site: upper extremity Side (If applicable): right Size (cm): 0.25 Description: linear Depth: simple, single layer Local Anesthetic: lidocaine 1% and with epi Pre-repair: wound explored, irrigated and irrigated extensively ====== Skin Level ====== Skin layer closed with: steri strips ====== Subcutaneous Layer ====== ====== Muscle Layer ====== ====== Tendon Layer ====== MDM - Animal Bite MDM Narrative Medical decision making narrative: 54-year-old female presents to the emergency department for dog bite to her right forearm that occurred today at 5:00 p.m.. See HPI for further history. The dog is up-to-date on vaccines the patient is reportedly up-to-date on her tetanus. Vital signs are stable. Exam is notable for the above. X-ray of the forearm shows a possible radial head fracture with right elbow joint effusion. Recommendations for dedicated right elbow radiographs for further evaluation. There is subcutaneous gas in the proximal forearm versus gastric within the bandage material. X-ray of the right elbow shows no acute osseous findings in the right elbow muscle right elbow joint effusion. I discussed x-ray findings and patient's presentation with orthopedist on-call, Dr. Pedroza, who does not feel the patient has a radial head fracture. The wounds were irrigated extensively with normal saline and closed with loose approximation as noted above. Patient was started on Augmentin. She was advised to have sutures removed in 7 days and was given strict ED return precautions and wound care. She is agreeable with the plan verbalized understanding. Discharged in stable condition. Discharge Plan Discharge Clinical Impression: Dog bite, Laceration Patient Disposition: Home Condition: Stable Instructions: Antibiotic Form, Animal Bite (ED), Care For Your Stitches (ED), Laceration (ED) Additional Instructions: You were evaluated in the emergency department for dog bite. You have a total o f 4 stitches placed. Please get these removed in 7 days by primary care, urgent care or emergency department. Please take antibiotics as directed. Keep her wounds clean and dry. Follow-up closely with her PCP. Return to the emergency department if you develop fever, surrounding redness, drainage or other concerning symptoms. Patient Language: Nepalese Prescriptions: New amoxicillin-pot clavulanate 875-125 mg tablet 1 tablet PO Q12H Qty: 14 0RF Follow-up/Referrals: PHYSICIAN NOT ON STAFF,NONSTAFF [Primary Care Provider] -
[2025-03-05] MEDS: LIDO 1%/EPINEPHRINE 1:100,000 20 ML VIAL 10 ML INFILTRATE (19:47)
== END 2025-03-05 22:25 | disposition home or self-care (01) ==
PROVIDERS: Emergency Provider Physician Assistant
DX: S51.851A Open bite of right forearm, initial encounter (principal); W54.0XXA Bitten by dog, initial encounter
CPT/HCPCS: 12001; 73080; 73090; 99283; A9270; J2004